=== PATIENT | female | born 1955 | race American Indian/Alaskan Native ===

== ENCOUNTER 2020-11-29 07:41 | Outpatient (CLI) | payer BC ==
[2020-11-29] MEDS ORDERED: METOPROLOL TARTRATE 5 MG/5 ML INJ IV NR (08:30)
[2020-11-29] MEDS ORDERED: ATROPINE 1 MG/ML VIAL IV NR (08:30)
[2020-11-29] MEDS ORDERED: NITROGLYCERIN 0.4 MG TAB SUBL SL NR (08:30)
[2020-11-29 09:54] LABS: Blood Urea Nitrogen 7 mg/dL (7-17)
[2020-11-29 10:53] VITALS: BP 96/66
--- NOTE | 2020-11-29 12:25 | Cat Scan Report ---
CTA HEART WITH AND WITHOUT CONTRAST 11/29/2020 11:04 AM TECHNIQUE: Routine ECG-gated coronary CT angiography performed on a 64-channel system. 3-D/MIP reform ats were postprocessed. Note that this exam targets the heart and the entire chest was not imaged. CONTRAST: 100 ml Omnipaque 300 HISTORY: Abnormal stress test COMPARISONS: none PREMEDICATION: See nurse's notes. FINDINGS: CARDIAC/CORONARY FINDINGS: Please see cardiology report in this particular case. EXTRACARDIAC/EXTRACORONARY FINDINGS: VISUALIZED LUNGS: unremarkable VISUALIZED MEDIASTINUM: unremarkable VISUALIZED CHEST WALL: unremarkable VISUALIZED UPPER ABDOMEN: Mild to moderate hepatic steatosis is evident. . IMPRESSION 1. Please see cardiology dictation in this particular case for the cardiac/coronary findings. 2. Hepatic steatosis. DISCLAIMER: This is a combined radiology and cardiology interpretation. Cardiology is solely responsible for rep orting of cardiac and coronary findings. Radiology is solely responsible for reporting of the extrac ardiac and extracoronary findings. Signer Name: Tra Armstrong Jr, MD Signed: 11/29/2020 12:20 PM Workstation Name: [id number]
== END 2020-11-29 10:30 | disposition home or self-care (01) ==
LOC: CATHLABREC 07:41
PROVIDERS: ATTEND Internal Medicine Cardiovascular Disease
DX: R94.39 Abnormal result of other cardiovascular function study (principal)
CPT/HCPCS: 36415; 75574; 82565; 84520; Q9967